=== PATIENT | female | born 1990 | race Asian ===

== ENCOUNTER 2018-12-05 11:00 | Observation (INO) | payer MEDICAID, OTHER ==
[~2018-12-05] VITALS: Ht 160 cm; Wt 73.5 kg
[2018-12-05] MEDS ORDERED: OXYTOCIN/0.9 % SODIUM CHLORIDE 1,000 ML IV SCH (12:18)
[2018-12-05] MEDS ORDERED: LR 1,000 ML IV SCH (12:18)
[2018-12-05] MEDS ORDERED: LR 1,000 ML IV ONE (12:18)
[2018-12-05] MEDS ORDERED: TERBUTALINE SULFATE 1 MG/ML VIAL SUBCUT ONE (12:30)
[2018-12-05] MEDS ORDERED: NALBUPHINE HCL 10 MG/ML AMP IVP PRN (12:30)
== END 2018-12-05 13:05 | disposition home or self-care (01) ==
LOC: SPU 11:00 → INTOOBSV 11:00 → OBSVTOIN 11:00
PROVIDERS: ADMIT Obstetrics & Gynecology; ATTEND Obstetrics & Gynecology
DX: O42.913 Preterm premature rupture of membranes, unspecified as to length of time between rupture and onset of labor, third trimester (principal); Z3A.39 39 weeks gestation of pregnancy
CPT/HCPCS: G0378

== ENCOUNTER 2018-12-06 02:38 | Inpatient (IN) | payer OTHER ==
[~2018-12-06] VITALS: Ht 160 cm; Wt 73.5 kg
[2018-12-06] MEDS ORDERED: LR 1,000 ML IV SCH (03:05)
[2018-12-06] MEDS ORDERED: OXYTOCIN/0.9 % SODIUM CHLORIDE 1,000 ML IV SCH ×2 (03:05→07:01)
[2018-12-06] MEDS ORDERED: LR 1,000 ML IV ONE (03:05)
[2018-12-06] MEDS ORDERED: TERBUTALINE SULFATE 1 MG/ML VIAL SUBCUT ONE (03:15)
[2018-12-06] MEDS ORDERED: NALBUPHINE HCL 10 MG/ML AMP IVP PRN (03:15)
[2018-12-06 03:51] LABS: BASOPHILS % (AUTO) 0.3 % (0.0-2.0); EOSINOPHILS # (AUTO) 0.3 K/uL (0.0-0.4); EOSINOPHILS % (AUTO) 2.4 % (0.0-4.0); HEMATOCRIT 41.5 % (36-48); HEMOGLOBIN 13.5 g/dL (12.0-16.0); LYMPHOCYTES # (AUTO) 2.2 K/uL (1.0-5.5); MEAN CORPUSCULAR HEMOGLOBIN 29 pg (27-31); MEAN CORPUSCULAR HGB CONC 33 % (32-36); MEAN CORPUSCULAR VOLUME 88 fL (79.0-98.0); MONOCYTES # (AUTO) 0.8 K/uL (0.0-1.0); MONOCYTES % (AUTO) 6.9 % (1.7-9.3); NEUTROPHILS # (AUTO) 7.8 K/uL (1.8-7.7); NEUTROPHILS % (AUTO) 70.4 % (40.0-70.0); PLATELET COUNT (AUTO) 252 K/uL (130-430); RED BLOOD CELL COUNT(AUTO) 4.72 MIL/uL (4.2-6.2); RED CELL DISTRIBUTION WIDTH 13.4 % (9.0-15.0); WHITE BLOOD COUNT (AUTO) 11.1 K/uL (4.8-10.8)
[2018-12-06 04:54] VITALS: BP_SYST 118
[2018-12-06] MEDS ORDERED: OXYTOCIN/0.9 % SODIUM CHLORIDE 1,000 ML IV ONE (07:01)
[2018-12-06] MEDS ORDERED: SENNOSIDES/DOCUSATE SODIUM 1 TAB TABLET(SENOKOT-S) PO PRN (07:15)
[2018-12-06] MEDS ORDERED: METHYLERGONOVINE MALEATE 0.2 MG TABLET PO PRN (07:15)
[2018-12-06] MEDS ORDERED: DOCUSATE SODIUM 100 MG CAPSULE PO PRN (07:15)
[2018-12-06] MEDS ORDERED: DERMOPLAST SPRAY TP PRN (07:15)
[2018-12-06] MEDS ORDERED: MEASLES,MUMPS&RUBELLA VACC/PF 12500 UNIT/0.5 ML VIAL SUBQ PRN (07:15)
[2018-12-06] MEDS ORDERED: LANOLIN 7 GM OINT. TP PRN (07:15)
[2018-12-06] MEDS ORDERED: HYDROCORTISONE 0.5%, 28.35 GM TOPICAL CREAM TP PRN (07:15)
[2018-12-06] MEDS ORDERED: ANUSOL 1 EA SUPP.RECT (PREPARATION H) RC PRN (07:15)
[2018-12-06] MEDS ORDERED: OXYCODONE/ACETAMINOPHEN 5-325 TABLET PO PRN ×2 (07:15)
[2018-12-06] MEDS ORDERED: DIPH-TET-PERTUS Vaccine 0.5 ML VIAL (ADACEL) I.M. PRN (07:15)
[2018-12-06] MEDS ORDERED: WITCH HAZEL LEAF 1 MED.PAD MED.PAD TP PRN (07:15)
[2018-12-06] MEDS: IBUPROFEN 600 MG TABLET PO SCH ×2 (12:00→18:00)
[2018-12-06] MEDS ORDERED: LIDOCAINE PF 1% 30ML(POUR BTL) INJ ONE (14:20)
[2018-12-06] MEDS ORDERED: TEMAZEPAM 15 MG CAPSULE PO PRN (21:00)
[2018-12-07 06:06] LABS: BASOPHILS % (AUTO) 0.1 % (0.0-2.0); EOSINOPHILS # (AUTO) 0.2 K/uL (0.0-0.4); EOSINOPHILS % (AUTO) 1.4 % (0.0-4.0); LYMPHOCYTES # (AUTO) 2.2 K/uL (1.0-5.5); LYMPHOCYTES % (AUTO) 13.3 % (20.5-51.5); MEAN CORPUSCULAR HEMOGLOBIN 29 pg (27-31); MEAN CORPUSCULAR HGB CONC 33 % (32-36); MEAN CORPUSCULAR VOLUME 88 fL (79.0-98.0); MONOCYTES # (AUTO) 0.7 K/uL (0.0-1.0); MONOCYTES % (AUTO) 4.6 % (1.7-9.3); NEUTROPHILS # (AUTO) 13.1 K/uL (1.8-7.7); NEUTROPHILS % (AUTO) 80.6 % (40.0-70.0); PLATELET COUNT (AUTO) 264 K/uL (130-430); RED BLOOD CELL COUNT(AUTO) 4.42 MIL/uL (4.2-6.2); RED CELL DISTRIBUTION WIDTH 13.4 % (9.0-15.0); WHITE BLOOD COUNT (AUTO) 16.2 K/uL (4.8-10.8)
== END 2018-12-07 15:09 | disposition home or self-care (01) | DRG 560 ==
LOC: SPU 02:38 → OBSVTOIN 02:58
PROVIDERS: ADMIT Obstetrics & Gynecology; ATTEND Obstetrics & Gynecology
PROC: 0W8NXZZ Division of Female Perineum, External Approach (ICD-10-PCS; principal; 2018-12-06)
PROC: 10E0XZZ Delivery of Products of Conception, External Approach (ICD-10-PCS; 2018-12-06)
DX: O69.1XX0 Labor and delivery complicated by cord around neck, with compression, not applicable or unspecified (principal); Z37.0 Single live birth; Z3A.39 39 weeks gestation of pregnancy
CPT/HCPCS: 36415; 85025; 86592; 86886; 86900; 86901; G0378; J2001; J2590; J7120